=== PATIENT | female | born 1990 | race Caucasian/White ===

== ENCOUNTER 2022-05-26 03:50 | Emergency (ER) | payer OTHER ==
--- NOTE | 2022-05-26 04:51 | NUR ---
CALLED TO TRIAGE NO RESPONSE
--- NOTE | 2022-05-26 05:08 | NUR ---
CALLED TO TRIAGE NO RESPONSE
--- NOTE | 2022-05-26 05:13 | NUR ---
CALLED TO TRIAGE NO RESPONSE
== END 2022-05-26 05:14 | disposition left against medical advice (07) ==
LOC: ER 03:51
DX: Z53.21 Procedure and treatment not carried out due to patient leaving prior to being seen by health care provider (principal)